=== PATIENT | female | born 1995 | race Asian ===

== ENCOUNTER 2016-07-06 15:52 | Emergency (ER) | payer OTHER ==
[~2016-07-06] VITALS: Ht 152.4 cm; Wt 56.7 kg
[~2016-07-06 15:52] MED LIST: ALLEGRA-D 12 H1 EAC2 PO; AMOXICILLIN 50500 MG PO; IBUPROFEN 600600 M1 PO
[2016-07-06 16:35] LABS: URINE BILIRUBIN NEGATIVE (Negative); URINE BLOOD NEGATIVE (Negative); URINE COLOR YELLOW; URINE GLUCOSE-RANDOM* NEGATIVE (Negative); URINE KETONES NEGATIVE (Negative); URINE LEUKOCYTES-REFLEX 2+ (Negative); URINE PROTEIN (DIPSTICK) 1+ (Negative); URINE SPECIFIC GRAVITY 1.015 (1.003-1.035); URINE UROBILINOGEN 0.2 E.U./dl (0.2-1.0)
[2016-07-06 16:47] LABS: CASTS None Seen /LPF (None Seen); CRYSTALS None Seen /LPF (None Seen); SQUAMOUS 4-10 Moderate /LPF (0-3); URINE RBC None Seen /HPF (0-2); URINE WBC-REFLEX 6-15 Few /HPF (0-5); YEAST-REFLEX Present (None Seen)
== END 2016-07-06 17:24 | disposition home or self-care (01) ==
LOC: ER 15:52
PROVIDERS: Physician Assistant
DX: N94.89 Other specified conditions associated with female genital organs and menstrual cycle (principal)